=== PATIENT | female | born 1975 | race Caucasian/White ===

== ENCOUNTER 2018-03-03 07:42 | Emergency (ER) | payer SELFPAY ==
[2018-03-03] MEDS ORDERED: Silver Sulfadiazine 1% Cream 50 GM JAR ONE (08:03)
== END 2018-03-03 08:17 | disposition home or self-care (01) ==
LOC: BURERS 07:42
DX: T23.211A Burn of second degree of right thumb (nail), initial encounter (principal); X10.2XXA Contact with fats and cooking oils, initial encounter
CPT/HCPCS: 16020

== ENCOUNTER 2018-08-20 15:37 | Emergency (ER) | payer SELFPAY ==
[2018-08-20] MEDS ORDERED: Ketorolac Tromethamine 30 MG/ML VIAL ONE (16:19)
[2018-08-20] MEDS ORDERED: Ondansetron PF 4 MG/2 ML Vial ONE (16:19)
[2018-08-20 16:26] LABS: #Basophils 0.1 thou/uL (0.0-0.2); #Eosinphils 0.2 thou/uL (0.0-0.7); #Lymphocytes 1.5 thou/uL (1.20-3.40); #Monocytes 0.6 thou/uL (0.11-0.59); #Neutrophils 5.3 thou/uL (1.40-6.50); %Basophils 0.8 % (0.0-1.0); %Eosinophils 2.3 % (0.0-10.0); %Lymphocytes 19.3 % (21.0-51.0); %Monocytes 7.7 % (0.0-10.0); %Neutrophils 69.8 % (42.0-75.0); Hemoglobin 14.5 g/dL (12.0-16.0); Mean Corpuscular HGB CONC 33.6 g/dL (32.0-36.0); Mean Corpuscular Hemoglobin 31.1 pg (27.0-31.0); Mean Corpuscular Volume 92.7 fL (78.0-98.0); Mean Platelet Volume 9.9 fL (7.4-10.4); Platelet Count 219 thou/uL (130-400); RBC Distribution Width 11.2 % (11.5-14.5); Red Blood Cell (RBC) Count 4.65 mill/uL (4.20-5.40); White Blood Cell (WBC) Count 7.7 thou/uL (4.8-10.8)
[2018-08-20 16:40] LABS: ALT (SGPT) 12 U/L (8-55); AST (SGOT) 13 U/L (5-34); Alkaline Phosphatase 74 U/L (40-150); Anion Gap 11 mmol/L (10-20); BUN (Urea Nitrogen) 18 mg/dL (7.0-18.7); Bilirubin, Total 0.4 mg/dL (0.2-1.2); Calc. Creatinine Clearance 0 mL/min (70-130); Calcium 9.2 mg/dL (7.8-10.44); Carbon Dioxide 27 mmol/L (22-29); Chloride 109 mmol/L (98-107); Estimated GFR-MDRD 84; Globulin 2.9 g/dL (2.4-3.5); Glucose 85 mg/dL (70-105); Potassium 3.9 mmol/L (3.5-5.1); Protein, Total 6.9 g/dL (6.0-8.3); Sodium 143 mmol/L (136-145)
[2018-08-20 17:08] LABS: Bilirubin Negative (Negative); Blood, Urine Negative (Negative); Clarity Clear (Clear); Glucose, Urine (Dipstick) Negative (Negative); Leukocyte Negative (Negative); Nitrite Negative (Negative); Protein, Urine (Dipstick) Negative (Neg-Trace); Urobilinogen 0.2 mg/dL (0.2-1.0)
[2018-08-20 17:09] LABS: Pregu Control Background? CLEAR/WHITE (CLR/WHITE); Pregu Control Bar Appear? YES (CONTROL BAR)
[2018-08-20 17:11] LABS: Pregnancy Test - Urine (BHCG) Negative (Negative)
--- NOTE | 2018-08-20 20:25 | RAD ---
PORTABLE CHEST 08/20/18 An AP portable film at 1556 shows a normal sized heart and clear lungs. No infiltrate or effusion w as seen. No pulmonary masses or other pathology of concern was noted. The mediastinum appears normal and the trachea is midline. IMPRESSION: No acute thoracic findings. POS: HOME
== END 2018-08-20 17:30 | disposition home or self-care (01) ==
LOC: BURERS 15:37
DX: C53.9 Malignant neoplasm of cervix uteri, unspecified (principal); R10.9 Unspecified abdominal pain; F41.9 Anxiety disorder, unspecified; F32.9 Major depressive disorder, single episode, unspecified; Z79.899 Other long term (current) drug therapy
CPT/HCPCS: 71045; 80053; 81003; 81025; 85025; 96361; 96374; 96375; J1885; J2405

== ENCOUNTER 2018-10-30 16:27 | Emergency (ER) | payer SELFPAY ==
[2018-10-30] MEDS ORDERED: HYDROcodone/Acetaminophen 5/325 mg Tablet ONE (16:50)
[2018-10-30] MEDS ORDERED: Ondansetron ODT 4 MG TAB ONE (16:50)
== END 2018-10-30 17:13 | disposition home or self-care (01) ==
LOC: BURERS 16:27
DX: R10.30 Lower abdominal pain, unspecified (principal); C80.1 Malignant (primary) neoplasm, unspecified; F41.9 Anxiety disorder, unspecified; F32.9 Major depressive disorder, single episode, unspecified; Z79.899 Other long term (current) drug therapy
CPT/HCPCS: 99283; Q0162